=== PATIENT | female | born 1990 | race Caucasian/White ===

== ENCOUNTER 2017-08-28 07:26 | Emergency (ER) | payer OTHER ==
[~2017-08-28] VITALS: Ht 162.6 cm; Wt 74.8 kg
[2017-08-28] MEDS ORDERED: ZOFRAN ODT4 MG PO (07:47)
[2017-08-28] MEDS ORDERED: PROMETHAZINE HC25 M1 PO (11:23)
== END 2017-08-28 12:06 | disposition home or self-care (01) ==
LOC: ED 07:26
DX: O98.511 Other viral diseases complicating pregnancy, first trimester (principal); B34.9 Viral infection, unspecified; Z3A.12 12 weeks gestation of pregnancy
CPT/HCPCS: 80053; 81001; 83690; 85025; 87502; 96374; 96375; 99283; J2405; J2550; J7030

== ENCOUNTER 2017-08-30 01:53 | Emergency (ER) | payer OTHER ==
[~2017-08-30 01:53] MED LIST: PROMETHAZINE HC25 M1 PO; ZOFRAN ODT4 MG PO
[2017-08-30] MEDS ORDERED: REGLAN10 MG PO (05:31)
[2017-08-30] MEDS ORDERED: COMPAZINE25 MG PR (05:33)
== END 2017-08-30 07:26 | disposition home or self-care (01) ==
LOC: ED 01:53
DX: O99.89 Other specified diseases and conditions complicating pregnancy, childbirth and the puerperium (principal); R10.9 Unspecified abdominal pain; R19.7 Diarrhea, unspecified; O21.9 Vomiting of pregnancy, unspecified; O99.281 Endocrine, nutritional and metabolic diseases complicating pregnancy, first trimester; E87.6 Hypokalemia; Z3A.12 12 weeks gestation of pregnancy
CPT/HCPCS: 80053; 81001; 83690; 85025; 96374; 96375; 96376; 99283; J2270; J2405; J2765; J7030

== ENCOUNTER 2017-08-31 19:29 | Observation (INO) | payer OTHER ==
[~2017-08-31] VITALS: Ht 162.6 cm; Wt 70.2 kg
[~2017-08-31 19:29] MED LIST changes: +COMPAZINE25 MG PR; +REGLAN10 MG PO
--- NOTE | 2017-09-13 10:15 | CONS ---
[facility] [address] [place], [place] [address] Signed DATE OF CONSULTATION: BRIEF CONSULT/ADMIT NOTE HISTORY OF PRESENT ILLNESS: A 27-year-old 2, para 1 with last menstrual period of 06/06/2017, at approximately 12-week intrauterine , presents to the emergency department with a week long issues of nausea, vomiting, subsequently diarrhea, uncontrolled by p.o. or p.r. antiemetics. The patient was seen in the emergency room 3 days prior to before for the same complaint and ultimately had approximately 4 visits to the emergency department for same complaints. She was treated for gastroenteritis and hydrated, and given antiemetics, but upon this occasion complaining of approximately 20 episodes of emesis and eight episodes of diarrhea. She was therefore, admitted and was also noted to have hypokalemia upon admission. On my exam, she is complaining of cough and congestion since last Thursday, lot of phlegm that makes her nauseated and feeling miserable. No fever. Family members also with similar symptoms. PAST MEDICAL HISTORY: Negative. PAST SURGICAL HISTORY: Negative. FAMILY HISTORY: Noncontributory. RN FACULTY HISTORY: Prior 5 years ago. Nice preeclampsia girl. delivered in 2012, spontaneous vaginal delivery, 5 pounds at 37 weeks gestation. SOCIAL HISTORY: No tobacco, alcohol, or illicit drug use. MEDICATIONS: Zofran, promethazine, Reglan, Compazine as needed for nausea and vomiting. ALLERGIES: No known drug allergies. LABORATORY DATA: White count 4.2, hemoglobin 12.9, hematocrit 38.5, and platelets 96. Sodium 136, potassium 3, chloride 101, bicarb 23, BUN 4, and creatinine 0.33 with glucose 96. PHYSICAL EXAMINATION: Electronically Signed By: MARY EVERETT MD 09/13/17 1015 PATIENT NAME: REMY GUERRA CONSULTATION DATE OF : 89 REPORT #: [id number] PHYSICIAN: MARY EVERETT MD PCP: CARLIN DAVIS MD REPORT IS CONFIDENTIAL AND NOT TO BE RELEASED WITHOUT AUTHORIZATION [facility] [address], [place] [address] Signed VITAL SIGNS: She is afebrile. Vital signs are stable. GENERAL: She is well nourished, well developed, white female, pale, in no acute distress. HEENT: Pupils are equal, round, and reactive to light. Extraocular muscles are intact. NECK: Supple. No thyromegaly. No lymphadenopathy. LUNGS: Clear bilaterally. CARDIOVASCULAR: Regular rate and rhythm. ABDOMEN: Soft, nontender, nondistended. Gravid. No hepatosplenomegaly. No guarding. EXTREMITIES: Nontender without edema. ASSESSMENT AND PLAN: The patient has an OB ultrasound last week with Dr. Davis confirming her 12-week intrauterine . She is a 27-year-old 2, para 1, who had upper respiratory infection and GI issues, epigastric pain, likely subsequent to her nausea and vomiting. Hypokalemia and low platelets, likely gestational thrombocytopenia. We will start on Zithromax 500 mg IV x1 today and potassium riders continue with IV hydration and convert to regular diet. Continue to observe how she does through the day. Anticipate we will discharge her this evening if she is doing well. Mary Everett MD JKM/MODL /[id number] Copies: ~ Electronically Signed By: MARY EVERETT MD 09/13/17 1015 PATIENT NAME: REMY GUERRA CONSULTATION DATE OF : 89 REPORT #: [id number] PHYSICIAN: MARY EVERETT MD PCP: CARLIN DAVIS MD REPORT IS CONFIDENTIAL AND NOT TO BE RELEASED WITHOUT AUTHORIZATION
== END 2017-09-02 17:40 | disposition home or self-care (01) ==
LOC: ED 19:29 → MS 19:30
PROVIDERS: ADMIT Obstetrics & Gynecology
DX: O99.89 Other specified diseases and conditions complicating pregnancy, childbirth and the puerperium (principal); R11.2 Nausea with vomiting, unspecified; R19.7 Diarrhea, unspecified; R10.13 Epigastric pain; O99.111 Other diseases of the blood and blood-forming organs and certain disorders involving the immune mechanism complicating pregnancy, first trimester; D69.6 Thrombocytopenia, unspecified; O99.511 Diseases of the respiratory system complicating pregnancy, first trimester; J06.9 Acute upper respiratory infection, unspecified; O99.281 Endocrine, nutritional and metabolic diseases complicating pregnancy, first trimester; E87.6 Hypokalemia; Z3A.12 12 weeks gestation of pregnancy
CPT/HCPCS: 36415; 80048; 80053; 85025; 87045; 87046; 87177; 87205; 87209; 87493; 96361; 96365; 96366; 96374; 96375; 96376; 99285; G0378; J0456; J2469; J2550; J2765; J3480; J7030; J7050

== ENCOUNTER 2018-03-03 17:16 | Inpatient (IN) | payer OTHER ==
[~2018-03-03] VITALS: Ht 162.6 cm; Wt 77.0 kg
--- NOTE | ~2018-03-03 | OR ---
[facility] [address] [place], [place] [address] Draft DATE OF OPERATION: 03/03/2018 SURGEON: Paige Davis MD TALENT ACQUISITION PROGRAM MANAGER: Yahir Cancino MD PREOPERATIVE DIAGNOSES: A 37 plus week , denise breech labor, failed external breech version. POSTOPERATIVE DIAGNOSES: A 37 plus week , denise breech labor, failed external breech version, delivered. PROCEDURE: Primary section, low segment transverse uterine incision. ANESTHESIA: Spinal. ESTIMATED BLOOD LOSS: 600 mL. DRAINS: Calvo catheter. INDICATIONS AND FINDINGS: The patient is a 28-year-old female, 2, para 1, admitted at 37-4/7th weeks initially for an external breech version. That was undertaken earlier in the day under epidural anesthetic, but this did not allow the baby to revert to a vertex presentation. She was monitored throughout the day as initially she had a few prolonged decelerations though the deceleration was resolved, but then she began having increasing contractions. The patient then changed her cervix and became significantly more uncomfortable and it was felt that she was in labor with a breech presentation. She was then consented for primary section. She was taken to the OR where she was delivered of a little girl as a denise breech via lower segment transverse uterine incision with 's of 8 and 9 and weight of 6 pounds 1 ounce. The uterus, tubes, ovaries, and placenta appeared normal. DESCRIPTION OF PROCEDURE: The patient was prepped and draped in the supine position. A Pfannenstiel skin incision PATIENT NAME: REMY GUERRA OPERATIVE REPORT DATE OF : 89 REPORT #: [id number] PHYSICIAN: PAIGE DAVIS MD PCP: PAIGE DAVIS MD REPORT IS CONFIDENTIAL AND NOT TO BE RELEASED WITHOUT AUTHORIZATION [facility] [address] [place], [place] [address] Draft was made and carried down through the fascia. The incision was extended laterally. The inferior and superior fascial flaps were then created. The muscles were bluntly divided and the peritoneum was opened sharply and extended superiorly and inferiorly. The Lars retractor was then placed. The uterine incision was done at the upper aspect of the peritoneal reflection. The baby was delivered with the above findings and handed off to the pediatric staff in attendance. The placenta was removed manually and the uterus explored with a lap tape assuring no remaining fragments. The edges of the incision were identified and the uterus was closed in 2 layers using #0 Monocryl. The first layer was a running locking stitch and the second was a vertical imbricating stitch. An additional [id number] was required in the midportion for control of bleeding. The peritoneal edges also had some bleeding. This was controlled with cautery. The abdomen was then copiously irrigated and inspected and hemostasis was noted. The retractor was removed and the peritoneum identified. An ACell graft was laid over the lower segment to aid in healing. The peritoneum was then closed in a running suture of 3-0 Vicryl. The muscles were brought together with interrupted sutures of 0 Vicryl. Bleeding points were controlled on the surface of the muscles. This layer was also irrigated and found to be hemostatic. ACell powder was sprinkled over the muscles to aid in healing. The fascia was then closed from each angle to the midline with a running suture of 0 Vicryl. The subcutaneous tissue was irrigated and bleeding points controlled with cautery. Interrupted sutures of 3-0 Vicryl placed to the subcu space. The skin was closed with chay. All sponge and needle counts were correct. She tolerated the procedure well and was taken to the recovery room in good condition. MD KELTON Mcgee/ROBERT /[id number] cc: Yahir Cancino MD Copies: YAHIR CANCINO MD ~ PATIENT NAME: REMY GUERRA OPERATIVE REPORT DATE OF : 89 REPORT #: [id number] PHYSICIAN: PAIGE DAVIS MD PCP: PAIGE DAVIS MD REPORT IS CONFIDENTIAL AND NOT TO BE RELEASED WITHOUT AUTHORIZATION
--- NOTE | 2018-03-05 07:55 | PR ---
[facility] [address] [facility] [place], [place] [address] Signed PP Progress Notes Datetime Report Generated by RASHEL: 03/05/2018 07:55 SUBJECTIVE: [id number] Pain: Within normal limits Nausea/Vomiting: Denies Flatus: Yes Bowel Movement: Yes Vital Signs: [id number] Vital Signs: Reviewed; Within Normal Limits EXAM: [id number] Cardiovascular: Normal Respiratory: Normal Abdomen/Uterus: Abnormal Lochia: Normal Vulva/Perineum: Not Done Breasts: Not Done CVA Tenderness: Not Done Extremities: Normal Incision: Normal Progress: Normal Exam Comments: Abdomen with active BS. Fundus firm, NT @ U-1. IMPRESSION/PLAN/PROCEDURES: [id number] Impression: Normal progression Other Impression: N/V Plan: Remove chay; Discharge Other Plans: push po fluids Procedures: None Progress Notes: Doing well. She is ready for D/C. Signing Physician: Paige Davis MD Copies: ~ *Electronically Signed* 03/05/18 0755 PAIGE DAVIS MD PATIENT NAME: REMY GUERRA KELLY PROGRESS NOTE DATE OF : 89 PHYSICIAN: PAIGE DAVIS MD RPT #: [id number] REPORT IS CONFIDENTIAL AND NOT TO BE RELEASED WITHOUT AUTHORIZATION
== END 2018-03-05 11:55 | disposition home or self-care (01) | DRG 766 ==
LOC: FBC 17:16
PROVIDERS: ADMIT Obstetrics & Gynecology
PROC: 10D00Z1 Extraction of Products of Conception, Low, Open Approach (ICD-10-PCS; principal; 2018-03-03)
DX: O32.1XX0 Maternal care for breech presentation, not applicable or unspecified (principal); Z3A.37 37 weeks gestation of pregnancy; Z37.0 Single live birth
CPT/HCPCS: 36415; 85027; J2175; J2274; J2370; J2405; J2590; J2765

== ENCOUNTER 2021-12-17 08:05 | Emergency (ER) | payer OTHER ==
[~2021-12-17] VITALS: Ht 162.6 cm; Wt 77.5 kg
--- OUTSIDE RECORDS SUMMARY | 2021-12-17 08:10 | XMS ---
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 Jessica has no Care Guidelines for this patient. Bere VISIT COUNT (12 MO.) [address] [facility] TOTAL 3 NOTE: Visits indicate total known visits. ED/C VISIT TRACKING (12 MO.) 12/17/2021 08:[address] [facility] [place] TYPE: Emergency COMPLAINT: - R ANKLE INJURY 12/16/2021 16:12 [facility] [place] TYPE: Emergency COMPLAINT: - RT ANKLE INJURY 12/16/2021 14:53 [facility] [place] TYPE: Emergency COMPLAINT: - RT ANKLE INJURY INPATIENT VISIT TRACKING (12 MO.) No inpatient visits to display in this time frame [email or web address]
== END 2021-12-17 09:25 | disposition home or self-care (01) ==
LOC: ED 08:05
DX: S93.401A Sprain of unspecified ligament of right ankle, initial encounter (principal); X50.1XXA Overexertion from prolonged static or awkward postures, initial encounter; Z79.899 Other long term (current) drug therapy
CPT/HCPCS: 73610; 99283-25